=== PATIENT | female | born 2000 | race Two or more races ===

== ENCOUNTER 2023-06-22 15:11 | Inpatient (IN) | payer SELFPAY ==
[2023-06-22] VITALS (13 sets, daily range): BP systolic 111–143; BP diastolic 65–106; PULSE 58–89; RESP 16–18; TEMP 36.6–36.8; O2SAT 99
[2023-06-22 15:38] LABS: Basophils Percent Auto 0.2 % (0.2-1.2); Eosinophils Percent Auto 0.3 % (0-4.4); Hematocrit 30.8 % (37.0-47.0); Hemoglobin 8.8 g/dL (12.0-15.0); Immature Granulocyte Absolute 0.09 K/mm3 (0.00-0.031); Immature Granulocyte Percent A 0.9 % (0-0.5); Lymphocytes Absolute Auto 2.48 K/mm3 (0.9-3.2); Lymphocytes Percent Auto 23.9 % (18.3-44.2); Mean Corpuscular HGB Conc 28.6 g/dl (32-36); Mean Corpuscular Hemoglobin 19.6 pg (26-34); Mean Corpuscular Volume 68.4 fl (80-100); Mean Platelet Volume 9.4 fl (7.4-10.4); Monocytes Absolute Auto 0.5 K/mm3 (0.1-0.6); Monocytes Percent Auto 4.3 % (2.6-8.5); Neutrophils Absolute Auto 7.3 K/mm3 (1.3-6.7); Neutrophils Percent Auto 70.4 % (45.5-73.1); Platelet Count Result 184 k/mm3 (150-375); Red Cell Distribution Width 17.2 % (11.5-14.5); White Blood Count 10.4 K/mm3 (4.5-10.0)
[2023-06-22] MEDS: OXYTOCIN 30 UNITS/NS 500 ML 30 UNITS/500 ML BAG 999 UNITS IV CONT (15:47)
--- NOTE | 2023-06-22 15:59 | PM.IMHP ---
H&P: HPI History of Present Illness Date/Time: 06/22/23 15:59 Chief Complaint: abdominal pain Narrative: Joanne is a 22yo who presented to the ER with abdominal pain. She was found to be and sent to L&D. On arrival to L&D, she was found to be 9.5cm dilated with bulging bag. She has not had any care with this . She did not know how far along she was. Bedside US was performed and showed camejo (roughly term) in cephalic presentation. Pediatric team was at bedside. She denied any PMH, PSH, meds, allergies or any drug use. Review of Systems Constitutional: Constitutional: Denies chills, Denies fever(s) and Denies headache(s) Eyes: Eyes: Denies change in vision ENT: Denies headache(s) Cardiovascular: Cardiovascular: Denies chest pain and Denies dyspnea Respiratory: Respiratory: Denies dyspnea Genitourinary: Genitourinary: Denies abnormal vaginal bleeding and Denies vaginal discharge Neurologic: Denies headache(s) Psychiatric: Psychiatric: Denies anxiety and Denies depression Meds Home Medications and Allergies Home Medications Medication Instructions Recorded Confirmed Type No Home Medications 06/22/23 06/22/23 History Allergies Allergy/AdvReac Type Severity Reaction Status Date / Time No Known Allergies Allergy Verified 06/22/23 15:59 Vital Signs Vital Signs - 24 hr 06/22/23 15:46 Pulse Rate 75 Blood Pressure 128/65 Exam Const: General: cooperative and acute distress severe (with contractions) Orientation/consciousness: patient oriented x3 Resp: Effort & Inspection: normal respiratory effort Cardio: Rate: regular rate : Other: FHT's: 130's/ mod anjali/ + accels/ variable decels - cat 2 TOCO: ctxs q2min Cervix: 9.5cm; bulging bag Membranes: SROM, clear 1538 Presentation: cephalic Skin: General skin exam: normal color Neuro: General: patient oriented x3 Extrem: General: normal to inspection Psych: Appearance: grossly normal Affect: normal affect Attitude: cooperative Assessment and Plan Assessment and plan (1) No care in current : Qualifiers: Trimester: third trimester Qualified Code(s): O09.33 - Supervision of with insufficient care, third trimester Code(s): O09.30 - Supervision of with insufficient care, unspecified trimester Status: Acute Plan - admitted in labor - bedside US confirmed camejo in cephalic presentation - pediatric team was at bedside - ROM occurred at 1538 and she then began pushing - all prenatals labs to be sent + urine tox screen
[2023-06-22 16:03] LABS: Anisocytosis 1+ (NORMAL); Hypochromasia 1+ (NORMAL); Microcytosis 1+ (NORMAL); Ovalocytes 1+ (NORMAL); Platelet Estimate Adequate (Adequate); Schistocytes None Seen (NORMAL)
--- NOTE | 2023-06-22 16:05 | WPDHPUPDATE1 ---
History and Physical Update Update Date/Time: 06/22/23 16:05 History and Physical has been reviewed, including an updated exam of the patient. There are NO changes in the patient's condition. Risks, benefits, and alternatives have been discussed and questions answered. Patient agrees to proceed with procedure.
--- NOTE | 2023-06-22 16:05 | PM.OBPRVD ---
OB - Delivery Note Procedure Delivery date: 06/22/23 Events: No Care Delivery monitor: External FHT and External Uterine Route of delivery: Laceration Description: None Specimen: Yes (placenta and cord) Quantitative Blood Loss (ml): 300 Anesthesia type: None Disposition: Floor Stewart Baby Date of : 06/22/23 Time of : 15:43 Weeks of gestation at delivery: 37 (-40, unknown dating) Infant gender: Male Weight (pounds): 7 Weight (ounces): 5 presentation: vertex position: Right Occiput Anterior Placenta delivery description: Spontaneous Cord Vessel Description: 3 Vessels, Nuchal Cord, Loose, Reduced and Delayed Cord Clamping score one minute: 8 score five minutes: 9 Narrative: A [place] el teacher was used during the entire . Joanne presented in active labor and was found to be 9.5 cm dilated with a bulging bag. Shortly after my arrival, I verified a camejo in cephalic presentation on bedside US. She then had spontaneous rupture of membranes where clear fluid was noted. I examined her and she was found to be completely dilated. She did begin pushing with good maternal effort, and delivered the head over intact perineum. A nuchal cord was noted and reduced. She easily delivered the 's shoulders and body without complication. The was immediately placed skin to skin and had spontaneous cry. The pediatric team did suction his mouth. Delayed cord clamping was performed. The umbilical cord was then doubly clamped and cut. A segment of the cord was collected for cord gases. The remaining cord blood was collected for typing. With Pitocin running and gentle downward traction on the cord, the placenta delivered without complications. Bimanual massage was performed and good uterine tone with minimal bleeding was noted. She was examined and no lacerations were identified. Sponge, lap, instrument, and needle counts were correct at the end of the procedure. Mom and baby were left bonding in the birthing suite in stable condition. [facility] Delivery Billing Delivery Delivery: Delivery Charge
--- NOTE | 2023-06-22 16:11 | LDADM ---
This patient, Joanne Chan, was admitted to Labor/Delivery/Recovery 105 on 06/22/23 at 15:11. Plans for labor, pain management and were discussed with patient. Patient/family oriented to hospital policies and general routines including ID bracelet, bed and alarms, visiting hours, pain management, procedures, bathroom and other care routines, personal items, smoking policy, room service/diet and guest tray routines, security routines, and visiting hours. Patient/Family are encouraged to report perceived risks to care and to ask questions if they do not understand what they are told or what they should do. Difficulty with admission due to language barrier See OBIX for further documentation.
[2023-06-22] MEDS: OXYTOCIN 30 UNITS/NS 500 ML 30 UNITS/500 ML BAG 125 UNITS IV CONT (16:16)
[2023-06-22 16:56] LABS: HIV 1/2 Ab P24 Ag Result Negative (Negative)
[2023-06-22 17:33] LABS: Alanine Aminotransferase 29 U/L (6-35); Albumin Level 3.4 g/dL (3.5-5.1); Alkaline Phosphatase 242 U/L (38-126); Anion Gap 7 mmol/L (8-16); Aspartate Amino Transferase 38 U/L (14-36); Bilirubin,Total 0.9 mg/dL (0.2-1.3); Blood Urea Nitrogen 4 mg/dL (7-17); Calcium 8.5 mg/dL (8.4-10.2); Carbon Dioxide 20 mmol/L (22-30); Chloride 106 mmol/L (98-107); Estimated Glomerular Filt Rate > 60; Glucose 76 mg/dL (65-110); Potassium 2.9 mmol/L (3.4-5.0); Sodium 133 mmol/L (137-145)
[2023-06-22 18:18] LABS: Amphetamine Screen Urine Negative (Negative); Barbiturate Screen Urine Negative (Negative); Benzodiazepines Screen Urine Negative (Negative); Cannabinoid Screen Urine Negative (Negative); Cocaine Screen Urine Negative (Negative); Methadone Screen Urine Negative (Negative); Opiate Screen Urine Negative (Negative); Phencyclidine Screen Urine Negative (Negative)
[2023-06-22 18:30] LABS: Hepatitis B Surface Antigen Negative (Negative); Rubella IgG Antibody 18.8 IU/ML
[2023-06-22] MEDS: WITCH HAZEL 40 PADS 1 PAD TOPICAL (18:35)
[2023-06-22] MEDS: BENZOCAINE 20% AER SPR (*SP) 56 GM CAN 1 SPRAY TOPICAL (18:35)
--- NOTE | 2023-06-22 18:48 | OBPPTRN ---
Patient transferred to post room #292 via W/C. Oriented to unit, room, information board, rooming in, admission packet and security measures via stratus. Patient verbalizes understanding.
[2023-06-22 20:19] LABS: Hepatitis C Virus Antibody Negative (Negative)
[2023-06-22] MEDS: POLYSACCHARIDE IRON COMPLEX 150 MG CAPSULE PO (21:10)
[2023-06-23] MEDS: IBUPROFEN 600 MG TABLET PO ×2 (02:16→11:55)
[2023-06-23 04:40] VITALS: BP 122/72; PULSE 62; RESP 18; TEMP 36.8
[2023-06-23 05:32] LABS: Hematocrit 27.7 % (37.0-47.0); Hemoglobin 8.1 g/dL (12.0-15.0)
[2023-06-23 05:34] LABS: Alanine Aminotransferase 26 U/L (6-35); Albumin Level 2.7 g/dL (3.5-5.1); Alkaline Phosphatase 184 U/L (38-126); Anion Gap 0 mmol/L (8-16); Aspartate Amino Transferase 37 U/L (14-36); Bilirubin,Total 0.9 mg/dL (0.2-1.3); Blood Urea Nitrogen 3 mg/dL (7-17); Carbon Dioxide 23 mmol/L (22-30); Chloride 109 mmol/L (98-107); Estimated Glomerular Filt Rate > 60; Glucose 80 mg/dL (65-110); Potassium 3.3 mmol/L (3.4-5.0); Sodium 132 mmol/L (137-145)
--- NOTE | 2023-06-23 07:40 | PM.OBPNVD ---
OB - PN: Subj Subjective Date/time seen: 06/23/23 07:40 Narrative: PPD#1 Joanne reports doing well today. Her bleeding is kick press setter. Her pain is controlled. She is tolerating regular diet, voiding, passing gas, and ambulating without issues. She is bottle feeding. She does not want her son circumcised. OB - PN: Obj Data Labs 06/23/23 04:42 06/23/23 04:42 Labs: Laboratory Results - last 24 hr 06/22/23 06/22/23 06/22/23 15:31 15:32 17:49 WBC 10.4 H RBC 4.50 Hgb 8.8 L Hct 30.8 L MCV 68.4 L MCH 19.6 L MCHC 28.6 L RDW 17.2 H Plt Count 184 MPV 9.4 Immature Gran % (Auto) 0.9 H Neut % (Auto) 70.4 Lymph % (Auto) 23.9 [place] % (Auto) 4.3 Eos % (Auto) 0.3 Baso % (Auto) 0.2 Lymph # (Auto) 2.48 [place] # (Auto) 0.5 Eos # (Auto) 0.0 Baso # (Auto) 0.0 Abs Immat Gran (auto) 0.09 H Absolute Neuts (auto) 7.3 H Absolute Nucleated RBC 0.0 Nucleated RBC % 0.0 Platelet Estimate Adequate Hypochromasia 1+ Anisocytosis 1+ Microcytosis 1+ Ovalocytes 1+ Schistocytes None seen Sodium 133 L Potassium 2.9 L Chloride 106 Carbon Dioxide 20 L Anion Gap 7 L BUN 4 L Creatinine 0.50 L Estim Creat Clear Calc Not Reportable Estimated GFR > 60 Glucose 76 Calcium 8.5 Total Bilirubin 0.9 AST 38 H ALT 29 Alkaline Phosphatase 242 H Total Protein 7.0 Albumin 3.4 L Urine Opiates Screen Negative Urine Methadone Screen Negative Ur Barbiturates Screen Negative Ur Phencyclidine Scrn Negative Ur Amphetamine Screen Negative U Benzodiazepines Scrn Negative Urine Cocaine Screen Negative U Cannabinoids Screen Negative Hep Bs Antigen Negative Hepatitis C Ab Screen Negative HIV 1&2 Ab/P24 Ag 4thGn Negative Rubella IgG Antibody 18.8 Blood Type O Negative Antibody Screen Positive Antibody Identification Anti-D Antigen Identification D Antigen - POSITIVE ELVIRA, IgG Interpret Not Performed ELVIRA, Poly Interpret Negative ELVIRA, Complement Interp Negative 06/23/23 04:42 WBC RBC Hgb 8.1 L Hct 27.7 L MCV MCH MCHC RDW Plt Count MPV Immature Gran % (Auto) Neut % (Auto) Lymph % (Auto) [place] % (Auto) Eos % (Auto) Baso % (Auto) Lymph # (Auto) [place] # (Auto) Eos # (Auto) Baso # (Auto) Abs Immat Gran (auto) Absolute Neuts (auto) Absolute Nucleated RBC Nucleated RBC % Platelet Estimate Hypochromasia Anisocytosis Microcytosis Ovalocytes Schistocytes Sodium 132 L Potassium 3.3 L Chloride 109 H Carbon Dioxide 23 Anion Gap 0 L BUN 3 L Creatinine 0.50 L Estim Creat Clear Calc Not Reportable Estimated GFR > 60 Glucose 80 Calcium 8.0 L Total Bilirubin 0.9 AST 37 H ALT 26 Alkaline Phosphatase 184 H Total Protein 6.0 L Albumin 2.7 L Urine Opiates Screen Urine Methadone Screen Ur Barbiturates Screen Ur Phencyclidine Scrn Ur Amphetamine Screen U Benzodiazepines Scrn Urine Cocaine Screen U Cannabinoids Screen Hep Bs Antigen Hepatitis C Ab Screen HIV 1&2 Ab/P24 Ag 4thGn Rubella IgG Antibody Blood Type O Negative Antibody Screen TNP Antibody Identification Antigen Identification ELVIRA, IgG Interpret ELVIRA, Poly Interpret ELVIRA, Complement Interp OB - PN A/P Assessment and Plan (1) No care in current : Qualifiers: Trimester: third trimester Qualified Code(s): O09.33 - Supervision of with insufficient care, third trimester Code(s): O09.30 - Supervision of with insufficient care, unspecified trimester Status: Acute (2) Normal vaginal delivery: Code(s): O80 - Encounter for full-term uncomplicated delivery Status: Acute (3) Anemia: Code(s): D64.9 - Anemia, unspecified Status: Acute (4) Rh isoimmunization: Code(s): O36.0990 - Maternal care f
--- NOTE | 2023-06-23 07:45 | PC.NURSE ---
Pt introductions made and plan of care discussed per post , pain management, bottle feeding, daily care activities and discharge on 06/24. Used language line. PT given opportunity to have any questions or concerns addressed. PT questioning when depo shot available and then verbalized understanding . PT sole recipient of instructions. Language [place] and a barrier to learning. PT has a phone luther to help interpret for small questions and pt aware of social service consult and certificate later today with language line.
[2023-06-23 08:20] VITALS: BP 126/83; PULSE 64; RESP 18; TEMP 36.6; O2SAT 99
[2023-06-23] MEDS: ACETAMINOPHEN 325 MG TABLET 650 MG PO (11:54)
[2023-06-23] MEDS: POLYSACCHARIDE IRON COMPLEX 150 MG CAPSULE PO (11:55)
[2023-06-23] MEDS: DOCUSATE SODIUM 100 MG CAPSULE PO (11:55)
[2023-06-23 12:13] LABS: Rapid Plasma Reagin Non-Reactive (NonReactive)
[2023-06-23 12:22] VITALS: BP 113/87; PULSE 58; RESP 16; TEMP 36.6; O2SAT 100
[2023-06-23 20:10] VITALS: BP 117/64; PULSE 76; RESP 16; TEMP 36.7; O2SAT 99
[2023-06-23] MEDS: IRON SUCROSE COMPLEX 500 MG in SODIUM CHLORIDE 0.9% IV 250 ML 78.57 MG IVPB (23:00)
--- NOTE | 2023-06-24 07:20 | PM.OBDSVD ---
DS: Admitting Diagnosis Discharge Date 06/24/23 Admitting Diagnosis intrauterine no care DS: Discharge Diagnosis Discharge Diagnosis (1) No care in current : Qualifiers: Trimester: third trimester Qualified Code(s): O09.33 - Supervision of with insufficient care, third trimester Code(s): O09.30 - Supervision of with insufficient care, unspecified trimester Status: Acute (2) Supervision of high risk , unspecified, third trimester: Code(s): O09.93 - Supervision of high risk , unspecified, third trimester Status: Acute OB - DS: Summary OB Procedures : None OB Procedures Intrapartum: Spontaneous Vag Delivery OB Procedures: : None Status at Discharge Functional status at discharge: independent ambulation Overall status at discharge: patient is back to baseline Time Spent with Patient Time attestation: Total time spent providing and/or coordinating discharge services: Time spent: Less than 30 minutes Exam Const: General: comfortable and no acute distress Resp: Effort & Inspection: normal respiratory effort Auscultation: clear to auscultation bilaterally Cardio: Rate: regular rate GI: GI Palp: Yes Soft to palpation Auscultation: normal bowel sounds Other: Fundus firm below umbilicus Psych: Appearance: grossly normal Mental Status: mental status grossly normal Affect: normal affect DS: Data Data Completed and Pending Pending studies at discharge: Pending at discharge 06/22/23 15:47 Surgical [PTH] Routine Labs on day of discharge: Labs from last 24 hours 06/23/23 06/22/23 04:42 15:32 RPR Non-reactive Antigen Identification TNP Screen Not Reportable Baby's Blood Type O pos Baby's ELVIRA Positive Doses of RhIg Required 0 Discharge Plan Discharge Attending physician on discharge: Adele Del Cid Discharging Clinician: Adele Del Cid Anticipated Discharge Date/Time: 06/24/23 16:00 Patient Disposition: Home, Self-Care Activity: may shower and pelvic rest Diet: regular Patient Instructions: Antibiotic Form, Vaginal Delivery (DC) Stand Alone Forms: General Discharge Information Follow-up/Referrals: Adele Del Cid MD [Physician] - 4 Weeks Discharge Medications: New acetaminophen [Mapap (acetaminophen)] 325 mg Tablet 650 mg PO Q6H PRN (Reason: Mild Pain (1-3) Or Headache) Qty: 60 0RF polysaccharide iron complex 150 mg iron Capsule 150 mg PO BIDWM Qty: 120 0RF docusate sodium 100 mg Capsule 100 mg PO BID PRN (Reason: Constipation) Qty: 60 0RF ibuprofen 600 mg Tablet 600 mg PO Q6H PRN (Reason: Cramping) Qty: 40 0RF Date of admission: 06/22/23 15:11 Primary Care Provider: UNKNOWN,DOCTOR Admitting Provider: Adele Del Cid Attending physician on admission: Adele Del Cid Condition: Stable
[2023-06-24 08:30] VITALS: BP 129/83; PULSE 58; RESP 16; TEMP 37; O2SAT 100
--- NOTE | 2023-06-24 09:33 | PCCCNOTE ---
Addendum entered by Yessy Sims 06/24/23 16:22: 06/24/2023 Care Coordination met with pt. again this morning. Pt.'s provider has concerns regarding safety of pt. and baby due to potential human trafficking. Pt.'s FOB is in room with her sister. This appears to be the first visitor pt. has had. They are appropriate in room with pt. and baby. CC proceeded to question pt. and FOB of D/C plans. Pt.'s plan is to return to her parents house at [address] in [facility]. Pt.'s FOB stated that he would like to go to [place] at time of D/C. Pt. and FOB discussed plans in English so CC could not understand, but pt. states she will stay with her parents for two months. Pt.'s provider has stressed the importance of continuation of care for baby and pt. Pt. states understanding. Per provider's request, CC called and left message for the [employer] [place] [facility] [employer]. CC requested intake appointment voicemail. A DCFS report has been made (intake ID: [id number], DCFS worker Johanna Sanchez) but no investigation will be started due to no immediate risk of abuse, neglect, or human trafficking of the baby. Pt. has continued to state that she feels safe at home and safe to D/C home to her family and eventually return to [place]. CC utilized [employer] behavioral health associate ([place] [employer]shin [phone]) (Johanna [phone]). Original Note: care coordination met with pt. to discuss discharge planning. Pt. states she lives in [place] with her sig other and sister in law. Pt. is currently visiting her parents in [place]. Pt. states her parents are very supportive and will help her with the baby when she discharges. Pt. confirms she has everything needed to safely bring baby to her parents home and then [place]. This is pt.s fourth child. She has three children who live in [place], Pt. does not appear comfortable discussing being away from her other children. Support was provided. Pt. confirms she feels safe with D/C plan to return to her parents home and then [place]. Pt. denies any questions or concerns at this time. CC utilized [employer] behavioral health associate (Luis E, [id number]).
[2023-06-24] MEDS: DOCUSATE SODIUM 100 MG CAPSULE PO (14:10)
[2023-06-24] MEDS: POLYSACCHARIDE IRON COMPLEX 150 MG CAPSULE PO ×2 (14:10→19:09)
--- NOTE | 2023-06-24 19:00 | PC.NURSE ---
PT and fob both listened to language line computer systems analyst for discharge instructions and was given opportunities to have questions asked and answered . Both verbalized understanding of such care. PT and fob are taking infant to [facility] for a couple days and will come to follow up appt tomorrow at [facility] . PT has a doctor in [place] that sees both mom and baby and will be making appts for mom at 4 weeks and at 1 week. Attempts were made through care coordination regarding resources for family as they speak only Welsh thru the [facility]. Fob gave name of physician as Dr Marti Montero who practices at [address] [place] [id number]. [employer] number [phone].
[2023-06-24] MEDS: medroxyPROGESTERone ACETATE IM 150 MG/ML SYR IM (19:07)
--- NOTE | 2023-06-24 19:43 | PC.NURSE ---
PT discharged to home ambulatory accompanied by spouse and and taken to waiting car. Follow up appts confirmed
[2023-06-27 12:25] LABS: Varicella IgM Antibody <=0.90 (<=0.90)
== END 2023-06-24 19:43 | disposition home or self-care (01) | DRG 560 ==
LOC: ANHLDR 18:12 → ANHOB2 06-23 16:30 → ANHLDR 06-25 08:58
PROVIDERS: Admitting Provider Obstetrics & Gynecology; Visit Provider Student in an Organized Health Care Education/Training Program
DX: O69.81X0 Labor and delivery complicated by cord around neck, without compression, not applicable or unspecified (principal); Z37.0 Single live birth; Z3A.39 39 weeks gestation of pregnancy
CPT/HCPCS: 36415; 80053; 80307; 85014; 85018; 85025; 85461; 86592; 86703; 86762; 86787; 86803; 86850; 86880; 86900; 86901; 86902; 87340; 88307; A9270; G0432; J1050; J1756; J2590; J7050